=== PATIENT | male | born 1970 | race Caucasian/White ===

== ENCOUNTER 2025-05-08 08:15 | Outpatient (RCR) | payer BC, SELFPAY ==
[2025-03-18 14:45] VITALS: BMI 27.3
[2025-03-18 14:49] VITALS: BMI 27.3
--- NOTE | 2025-03-18 16:37 | PCDIET ---
03/18/25: MNT consult completed. Follow up scheduled.
[2025-05-08 08:25] VITALS: BMI 27.3
== END 2025-05-19 10:05 | disposition home or self-care (01) ==
LOC: ANHDMC 08:15
PROVIDERS: PCP Family Medicine; Visit Provider Physician Assistant
DX: E11.65 Type 2 diabetes mellitus with hyperglycemia (principal); Z71.89 Other specified counseling; Z71.3 Dietary counseling and surveillance
CPT/HCPCS: 97802; 97803; G0108